=== PATIENT | female | born 1990 | race Caucasian/White ===

== ENCOUNTER 2020-12-23 11:26 | Emergency (ER) | payer OTHER, SELFPAY ==
[2020-12-23 11:26] VITALS: BP 142/75; PULSE 96; RESP 16; TEMP 36.1; O2SAT 100
--- NOTE | 2020-12-23 12:34 | ED.GENADULT ---
HPI - General Adult General Chief complaint: Upper Respiratory Infection Stated complaint: ST,COUGH,BODY ACHES X1D Time Seen by Provider: 12/23/20 11:34 Source: patient Mode of arrival: ambulatory Limitations: no limitations History of Present Illness HPI narrative: Patient is a 30-year-old female who presents to emergency department for evaluation of sore throat mild cough congestion rhinorrhea for the last day. Patient notes mild symptoms has taken [id number] medications with some improvement. Denies fever vomiting diarrhea shortness of breath. Denies sick contacts. Notes that she works in [place] with possible exposures Related Data Allergies Allergy/AdvReac Type Severity Reaction Status Date / Time No Known Allergies Allergy Unverified 06/24/19 10:01 Review of Systems Review of Systems: All systems reviewed & are unremarkable except as noted in HPI and below Exam Narrative: Exam Narrative: GENERAL: Well-appearing, well-nourished, and in no acute distress. HEAD: Normocephalic, atraumatic. EYES: PERRLA and EOMI. ENT: Nares clear, no rhinorrhea or epistaxis. Mucous membranes moist. Oropharynx without tonsillar hypertrophy exudate or other lesions. Uvula midline no trismus or drooling CHEST: Clear to auscultation. No respiratory distress. No wheezes rales or rhonchi HEART: Regular rate and rhythm. No murmur heard. Normal peripheral pulses. ABDOMEN: Soft, nontender, nondistended, normal active bowel sounds. EXTREMITIES: Normal range of motion. No edema. SKIN: Warm, dry, no rash. NEURO: No focal deficits. Alert and oriented x3. Cranial nerves II through XII grossly intact PSYCH: Normal mood and affect. Course Course Emergency Course: Negative strep pharyngitis swab for COVID-19 patient has been advised to follow with the on-call primary care to obtain her Covid results is aware that this is the only way she can get them. Patient is afebrile nontoxic-appearing no distress no emesis normal vital signs ABCs intact and stable no hypoxemia no pneumonia detected on exam Vital Signs Vital signs: Vital Signs Temperature 97 F L 12/23/20 11:26 Pulse Rate 96 12/23/20 11:26 Respiratory Rate 16 12/23/20 11:26 Blood Pressure 142/75 H 12/23/20 11:26 Pulse Oximetry 100 12/23/20 11:26 Temperature 97 F L 12/23/20 11:26 Pulse Rate 96 12/23/20 11:26 Respiratory Rate 16 12/23/20 11:26 Blood Pressure 142/75 H 12/23/20 11:26 Pulse Oximetry 100 12/23/20 11:26 Medical Decision Making MDM Narrative Medical decision making narrative: Patient with upper respiratory infection tested for Covid will be discharged home provided with reasons to return Vital Signs Vital Signs: Vital Signs Temperature 97 F L 12/23/20 11:26 Pulse Rate 96 12/23/20 11:26 Respiratory Rate 16 12/23/20 11:26 Blood Pressure 142/75 H 12/23/20 11:26 Pulse Oximetry 100 12/23/20 11:26 Temperature 97 F L 12/23/20 11:26 Pulse Rate 96 12/23/20 11:26 Respiratory Rate 16 12/23/20 11:26 Blood Pressure 142/75 H 12/23/20 11:26 Pulse Oximetry 100 12/23/20 11:26 Lab Data Labs: Strep Screen Presumptive Negative *(Reference Range: Negative)* Discharge Plan Discharge Clinical Impression: Upper respiratory infection Patient Disposition: Home, Self-Care Condition: Stable Instructions: Antibiotic Form, COVID-19 (Coronavirus Disease 2019) (ED) Additional Instructions: Follow up with your primary care provider within 2 days to obtain your COVID-19 result. go to ER for shortness of breath, difficulty breathing, chest pain, fever/chills, weakness, nauseau/vomitting, etc. or any other concerns. Self quarantine until you have received your results Take any prescribed medications as directed. Stay well-hydrated If you do not have a drug allergy to tylenol or motrin and can tolerate it then take tylenol or motrin as needed for discomfort/ant
[2020-12-24 17:16] LABS: SARS-CoV-2 RNA PCR Positive
== END 2020-12-23 12:51 | disposition home or self-care (01) ==
PROVIDERS: Emergency Medicine Emergency Medical Services; Emergency Provider Family Medicine
DX: U07.1 COVID-19 (principal); J06.9 Acute upper respiratory infection, unspecified
CPT/HCPCS: 87880; 99283; C9803; U0003; U0005

== ENCOUNTER 2023-04-02 08:26 | Emergency (ER) | payer OTHER, SELFPAY ==
[2023-04-02 08:35] VITALS: BP 122/77; PULSE 83; RESP 16; TEMP 37.2; O2SAT 99
--- NOTE | 2023-04-02 08:51 | ED.SKABFB ---
HPI - Skin/Abscess/Foreign Bdy General Chief complaint: Skin/Abscess/Foreign Body Stated complaint: Rash/Face Pain Time Seen by Provider: 04/02/23 08:51 Source: patient Mode of arrival: ambulatory Limitations: no limitations History of Present Illness HPI narrative: 32-year-old female presents with complaint of poison sumac to left side of face, bilateral arms. Reports that she was exposed to the poison sumac from her boyfriend who came in contact with it at his job. Reports itching. Applying calamine lotion and taking Benadryl. Has had rash for approximately 1 week. All systems reviewed and negative except as noted above. Related Data Allergies Allergy/AdvReac Type Severity Reaction Status Date / Time No Known Allergies Allergy Verified 04/02/23 08:47 Review of Systems Review of Systems: CONSTITUTIONAL: Denies fever, chills, or sweats. EYES: Denies visual changes, redness, or discharge. ENT: Denies rhinorrhea, congestion, sore throat, or otalgia. CARDIOVASCULAR: Denies chest pain, palpitations, or edema. RESPIRATORY: Denies cough or dyspnea. GASTROINTESTINAL: Denies abdominal pain, nausea, vomiting, or diarrhea. GENITOURINARY: Denies dysuria or hematuria. SKIN: Reports poison loraine rash to left side of face and bilateral forearms. MUSCULOSKELETAL: Denies back pain, joint pain, or myalgia. NEUROLOGIC: Denies headache, numbness, or weakness. PSYCHIATRIC: Denies anxiety or depression. All other systems reviewed are negative, except as documented in HPI. PMFSH Comments At time of signature, agree with nursing past medical, surgical, social and family history. There is no relevant family history pertinent to the presenting complaint. Exam Narrative: GENERAL: This is a well-nourished, well-developed patient, in no apparent distress. HEAD: normocephalic, atraumatic. EYES: PERRL. Sclera clear/white. Vision is grossly intact. EARS: External ears normal NOSE: External nose normal NECK: Neck supple, non-tender without lymphadenopathy, masses or thyromegaly. CARDIOVASCULAR: Regular rate and rhythm without murmurs, gallops, or rubs. RESPIRATORY: Clear to auscultation. Breath sounds equal bilaterally. No wheezes, rales, or rhonchi. SKIN: warm, Dry, intact, good texture and turgor. Erythematous fascicular rash to left side of face, neck, bilateral forearms. No signs of infection. NEURO: awake, alert, and oriented to person, place and time. There were no obvious focal neurologic abnormalities. EXTREMITIES: No joint tenderness, effusion, or edema noted. Course Course Level of Care: Express Care Visit Vital Signs Vital signs: Vital Signs Temperature 37.2 C 04/02/23 08:35 Pulse Rate 83 04/02/23 08:35 Respiratory Rate 16 04/02/23 08:35 Blood Pressure 122/77 04/02/23 08:35 Pulse Oximetry 99 04/02/23 08:35 Oxygen Delivery Room Air 04/02/23 08:35 Temperature 37.2 C 04/02/23 08:35 Pulse Rate 83 04/02/23 08:35 Respiratory Rate 16 04/02/23 08:35 Blood Pressure 122/77 04/02/23 08:35 Pulse Oximetry 99 04/02/23 08:35 Oxygen Delivery Room Air 04/02/23 08:35 Reviewed MDM - Skin/Abscess/Foreign Bdy MDM Narrative Medical decision making narrative: Patient is aware of diagnosis, understands and agrees to treatment plan. Anticipatory guidance given. Patient agrees to follow-up as directed and is aware of reasons to seek care at the emergency department. Portions of this record may have been created with voice recognition software Differential Diagnosis Differential diagnosis: Likely contact dermatitis Discharge Plan Discharge Clinical Impression: Dermatitis due to plants, including poison loraine, sumac, and oak Patient Disposition: Home, Self-Care Condition: Stable Instructions: Poison Loraine (ED) Additional Instructions: Take medications as prescribed. Avoid applying steroid cream to face wear at may get into eye. Take hydroxyzine as needed f
== END 2023-04-02 09:05 | disposition home or self-care (01) ==
PROVIDERS: Emergency Provider Nurse Practitioner Family
DX: L25.5 Unspecified contact dermatitis due to plants, except food (principal)
CPT/HCPCS: 99213; G0463